=== PATIENT | male | born 1995 | race Caucasian/White ===

== ENCOUNTER 2025-06-09 18:52 | Emergency (ER) | payer BC, SELFPAY ==
[2025-06-09 18:55] VITALS: BP 170/105
[2025-06-09 19:17] LABS: Hematocrit 45.6 % (39.0-52.0); Hemoglobin 16.0 g/dL (13.0-18.0); Mean Corp Hgb Conc. 35.1 g/dL (33.0-37.0); Mean Corpuscular Volume 83.8 fL (80.0-94.0); Nucleated Red Blood Cells % 0 % (-); Platelet Count 141 10^3/uL (130-400); Red Cell Dist. Width 12.8 % (11.5-14.5)
[2025-06-09 19:36] LABS: COVID-19 Antigen Negative (Negative)
[2025-06-09 19:41] LABS: ALT (SGPT) 48 U/L (0-50); AST (SGOT) 29 U/L (17-59); Albumin 4.9 g/dl (3.5-5.0); Alkaline Phosphatase 71 U/L (38-126); Blood Urea Nitrogen 12 mg/dl (9-20); Calcium 9.4 mg/dl (8.4-10.2); Carbon Dioxide 28 mmol/L (22-30); Chloride 100 mmol/L (98-107); Glucose 99 mg/dl (70-99); Potassium 3.8 mmol/L (3.5-5.1); Sodium 135 mmol/L (135-145); Total Protein 8.0 g/dl (6.3-8.2); eGFR > 60.00
[2025-06-09] MEDS: MOTRIN 600 MG PO (20:45)
[2025-06-09] MEDS: AUGMENTIN 875 MG/125 MG 1 TABLET PO (21:33)
[2025-06-09] MEDS: TYLENOL 1000 MG PO (21:33)
[2025-06-09] MEDS: NSS 1000 IV (22:15)
[2025-06-09] MEDS: MORPHINE SULFATE 4 MG IV (22:15)
--- NOTE | 2025-06-09 22:15 | ED.GENMED ---
History of Present Illness
<Steve Wilburn Jr., PA-C - Last Filed: 06/10/25 14:08>
General
Chief Complaint: Dental Problem
Source: patient and spouse
Exam Limitations: none
Time Seen by Provider: 06/09/25 20:47
Nursing documentation reviewed up to this point in time: agreed with
History of Present Illness
History of Present Illness:
29-year-old male presenting to the emergency department today with concerns of discomfort to the frontal lower teeth progressive over the past 4 days associated subjective fever. Saw the emergency dentist today they recommended further assessment
and potential CT scan. No trouble swallowing or breathing. Does have general body aches and chills. Also has been very sweaty.
Past History
<Steve Wilburn Jr., PA-C - Last Filed: 06/10/25 14:08>
Past History
ED Past Medical History: Asthma and Psychiatric (Depression)
ED Past Surgical History: Orthopedic (Left wrist surgery ORIF) and Other (Right upper second molar extraction)
Social History
Tobacco: Non-smoker
Alcohol: Occasional
Drug: None
Personal: Single
Living: with family
Employment: Employed
Review of Systems
<Steve Wilburn Jr., PA-C - Last Filed: 06/10/25 14:08>
Review of Systems
Allergies reviewed?: Yes
All Other Systems: ROS reviewed and negative except as documented in HPI and ROS
Phy Exam
<Steve Wilburn Jr., PA-C - Last Filed: 06/10/25 14:08>
Physical Exam
Physical Exam:
GENERAL: Alert , in no apparent distress
EYE: pupils equal and reactive
NECK: Supple, no significant adenopathy.
ENT: No obvious swelling redness or warmth to the face or mandibular region o/p clr, mmm.
CARDIAC: Regular rate and rhythm .
LUNGS: Clear breath sounds bilaterally, no acute respiratory distress, no wheezes/rales/rhonchi
ABDOMEN: Soft, without focal tenderness, no r/g, no cvat
NEUROLOGICAL: Alert and oriented, no focal neuro deficits
SKIN: Warm and dry, skin intact.
MUSCULOSKELETAL: No edema, well perfused.
PSYCH: Normal and appropriate interaction.
Course
<Steve Wilburn Jr., PA-C - Last Filed: 06/10/25 14:08>
Orders/Labs/Results
Orders:
Orders
06/09/25 19:05
COVID-19 Antigen Urgent
Source: Nasal Swab
Complete Blood Count/With Diff Urgent
Comprehensive Metabolic Panel Urgent
TSH Reflex To Free T4 Urgent
Comment: ADD ON
Influenza A+B Rapid Molecular Urgent
AGGIE Source: Nasal Swab
Specimen Description:
06/09/25 20:41
Ibuprofen [Motrin] 600 mg .ROUTE .STK-MED ONE
06/09/25 20:44
Ibuprofen [Motrin] 600 mg PO NOW STA
06/09/25 21:24
Acetaminophen [Tylenol] 1,000 mg PO NOW STA
Amoxicillin 875 mg/Clav 125 mg [Augmentin 875 mg/125 mg] 1 tablet PO NOW STA
06/09/25 21:42
Add On- LAB Urgent
Tests Added?: tsh free t4
06/09/25 22:04
CT Facial Bones W/ Iv Contrast Urgent
Comment:
Reason For Exam: mandibular pain, fever, eval for infection /absces
0.9% Sodium Chloride 1000 ml [Nss] 1,000 ml IV BOLUS
Morphine Sulfate 4 mg IV NOW STA
06/09/25 22:22
Morphine Sulfate 4 mg .ROUTE .STK-MED ONE
06/09/25 23:57
Morphine Sulfate 2 mg IV NOW STA
Abnormal Lab Results
06/09/25
19:05
Absolute Lymphs (auto) 0.6 L 10^3/uL
(1.2-3.4)
Neutrophils % 84.9 H %
(42.2-75.2)
Lymphocytes % 8.6 L %
(20.5-51.1)
06/09/25 19:05
06/09/25 19:05
Vital Signs
Initial and Last Documented VS:
Initial Vital Signs
Temp Pulse Resp BP Pulse Ox
98.8 F 107 20 170/105 98
06/09/25 18:55 06/09/25 18:55 06/09/25 18:55 06/09/25 18:55 06/09/25 18:55
Last Documented Vital Signs
Temp Pulse Resp BP Pulse Ox
99.0 F 90 18 139/68 98
06/09/25 23:11 06/09/25 22:29 06/10/25 00:07 06/10/25 00:07 06/09/25 22:29
<Dorcas Joshi PA-C - Last Filed: 06/10/25 05:38>
Orders/Labs/Results
Orders:
Orders
06/09/25 19:05
COVID-19 Antigen Urgent
Source: Nasal Swab
Complete Blood Count/With Diff Urgent
Comprehensive Metabolic Panel Urgent
TSH Reflex To Free T4 Urgent
Comment: ADD ON
Influenza A+B Rapid Molecular Urgent
AGGIE Source: Nasal Swab
Specimen Description:
06/09/25 20:41
Ibuprofen [Motrin] 600 mg .ROUTE .STK-MED ONE
06/09/25 20:44
Ibuprofen [Motrin] 600 mg PO NOW STA
06/09/25 21:24
Acetaminophen [Tylenol] 1,000 mg PO NOW STA
Amoxicillin 875 mg/Clav 125 mg [Augmentin 875 mg/125 mg] 1 tablet PO NOW STA
06/09/25 21:42
Add On- LAB Urgent
Tests Added?: tsh free t4
06/09/25 22:04
CT Facial Bones W/ Iv Contrast Urgent
Comment:
Reason For Exam: mandibular pain, fever, eval for infection /absces
0.9% Sodium Chloride 1000 ml [Nss] 1,000 ml IV BOLUS
Morphine Sulfate 4 mg IV NOW STA
06/09/25 22:22
Morphine Sulfate 4 mg .ROUTE .STK-MED ONE
06/09/25 23:57
Morphine Sulfate 2 mg IV NOW STA
Abnormal Lab Results
06/09/25
19:05
Absolute Lymphs (auto) 0.6 L 10^3/uL
(1.2-3.4)
Neutrophils % 84.9 H %
(42.2-75.2)
Lymphocytes % 8.6 L %
(20.5-51.1)
06/09/25 19:05
06/09/25 19:05
Vital Signs
Initial and Last Documented VS:
Initial Vital Signs
Temp Pulse Resp BP Pulse Ox
98.8 F 107 20 170/105 98
06/09/25 18:55 06/09/25 18:55 06/09/25 18:55 06/09/25 18:55 06/09/25 18:55
Last Documented Vital Signs
Temp Pulse Resp BP Pulse Ox
99.0 F 90 18 139/68 98
06/09/25 23:11 06/09/25 22:29 06/10/25 00:07 06/10/25 00:07 06/09/25 22:29
<Steve Wilburn Jr., PA-C - Last Filed: 06/10/25 14:08>
MDM/Problems Addressed
MDM/Problems Addressed:
29-year-old male presenting to the today with concerns of discomfort to his frontal mandibular region. No specific redness warmth or swelling. No purulent drainage normal posterior pharynx. Afebrile on arrival mildly tachycardic. Did receive
Motrin on arrival. Otherwise labs here are unremarkable no white count COVID-negative flu negative.
<Steve Wilburn Jr., PA-C - Last Filed: 06/10/25 14:08>
*Pulse Oximetry
SaO2: 98
Oxygen Mode of Delivery: Room air
<Dorcas Joshi PA-C - Last Filed: 06/10/25 05:38>
*Pulse Oximetry
Patient hypoxic: no
*Critical Care Note
Total Time (30-74mins, 75-104mins- exclusive of procedures): Not Applicable
<Dorcas Joshi PA-C - Last Filed: 06/10/25 05:38>
Update Note
Update Note:
Update
I received patient in signout, on my exam patient is well-appearing no acute distress. Patient reports that he has not been sleeping due to the pain and is concerned that when he goes home he will let people sleep. He is comfortable at this time.
Will give subsequent small dose of morphine. He is being driven home by his family member.
CT scan shows no evidence of dental abscess or spread of infection. Patient does have a follow-up with his dentist tomorrow. Patient stable for discharge.
ED Attending Note
<Steve Wilburn Jr., PA-C - Last Filed: 06/10/25 14:08>
-
Portions of this chart may have been created with voice recognition software.� Occasional wrong word or��sound alike� substitutions may have occurred due to the inherent limitations of voice recognition software.
Discharge Plan
Departure
Patient Disposition: Home (Routine Discharge)
Date of Disposition: 06/09/25
Time of Disposition: 23:49
Patient with high blood pressure during this ER visit?: Yes
Condition: Good
Discharge Problem:
Pain, dental
Instructions: Dental Pain (DC), BLOOD PRESSURE
Prescriptions:
New
oxycodone-acetaminophen [Endocet] 5-325 mg tablet
1 tab PO Q8H PRN (Reason: Pain) Qty: 5 0RF
No Action
amoxicillin-pot clavulanate 1 TABLET tablet
1 tab PO Q12 Qty: 14 0RF
amoxicillin-pot clavulanate 875-125 mg tablet
1 tab PO BID Qty: 20 0RF
oxycodone 5 mg tablet
5 mg PO Q4H PRN (Reason: Pain) Qty: 14 0RF
prednisone 20 mg tablet
20 mg PO BID Qty: 10 0RF
Referrals:
NONE,* [Family Provider, Internal Medicine]
Activity Restrictions/Additional Instructions:
Please take your antibiotic as prescribed. Please follow-up with your dentist with your scheduled appointment tomorrow.
PLEASE RETURN HERE SHOULD YOU DEVELOP INABILITY TO SWALLOW, INABILITY TO OPEN THE JAW, TROUBLE SWALLOWING, INABILITY TO BREATHE, CHEST PAIN, INTRACTABLE NAUSEA OR VOMITING, SWELLING OF THE NECK, OR ANY OTHER SIGNS OR SYMPTOMS WORRISOME TO YOU.
Interventions
Interventions:
*Risk Screen - Suicide Last Done: 06/09/25 18:55
*General Assessment Last Done: 06/09/25 20:47
*Neglect/Abuse Screening Last Done: 06/09/25 18:55
*ED- Fall Risk Assessment Last Done: 06/09/25 20:47
*ED COVID-19 Vaccine History Last Done: 06/09/25 22:30
*ED Influenza Vaccine History Last Done: 06/09/25 22:30
*Nursing Disposition Last Done: 06/10/25 00:09
Discharge Date and Time
Discharge Date/Time: 06/10/25 00:09
Print Language: SPANISH
[2025-06-09 22:29] VITALS: BP 128/78
[2025-06-10] MEDS: MORPHINE SULFATE 2 MG IV (00:02)
[2025-06-10 00:07] VITALS: BP 139/68
== END 2025-06-10 00:09 | disposition home or self-care (01) ==
LOC: EMR 18:52
PROVIDERS: Emergency Medicine; EMERGENCY PHYSICIAN Emergency Medicine
DX: K08.89 Other specified disorders of teeth and supporting structures (principal); J45.909 Unspecified asthma, uncomplicated; F32.A Depression, unspecified
CPT/HCPCS: 99284; 96374; 96376; 96361; 70487; 80053; 84443; 85025; 87502; 87811; Q9967